=== PATIENT | female | born 1980 | race Caucasian/White ===

== ENCOUNTER 2019-04-14 15:52 | Emergency (ER) | payer MEDICAID, OTHER ==
[~2019-04-14] VITALS: Wt 92.7 kg
[2019-04-14] MEDS ORDERED: LIDOCAINE 1% (MDV) 20 ML INJ SC ONE (17:00)
[2019-04-14] MEDS ORDERED: IBUP800T48 PO (18:13)
[2019-04-14] MEDS ORDERED: SULF1TAB31 PO (18:13)
[2019-04-14] MEDS ORDERED: CEPH500C PO (18:13)
--- NOTE | 2019-04-14 20:01 | ERD ---
ER Documentation Chief Complaint Chief Complaint RIGHT SIDE INNER THIGH ABCESS HPI History of Present Illness: 39-year-old Italian-speaking female who denies past medical history coming in today with complaint of possible abscess to left inner thigh that is been present for 3 days. Patient reporting that drainage started yesterday. Daughter present in room and is Kiswahili speaking. At home pharmacological/nonpharmacological treatment for symptoms: Denies Denies social concerns; Denies recent foreign travel ROS All systems reviewed and are negative except as per history of present illness. Medications Home Meds Active Scripts Sulfamethoxazole/Trimethoprim* (Bactrim Ds* Tablet) 1 Each Tablet, 1 TAB PO BID for abscess skin infection for 7 Days, #14 TAB Prov:JEFF BENSON V PHARMACY STOCK CLERK 04/14/19 Cephalexin* (Cephalexin*) 500 Mg Capsule, 500 MG PO Q6 for abscess infection for 7 Days, #28 CAP Prov:JEFF BENSON V PHARMACY STOCK CLERK 04/14/19 Ibuprofen* (Motrin*) 800 Mg Tab, 800 MG PO Q6H PRN for PAIN AND OR ELEVATED TEMP, #30 TAB Prov:JEFF BENSON V PHARMACY STOCK CLERK 04/14/19 Allergies Allergies: Coded Allergies: No Known Allergy (Verified Allergy, Unknown, 11/15/08) PMhx/Soc Medical and Surgical Hx: pt denies Medical Hx, pt denies Surgical Hx Hx Alcohol Use: No Hx Substance Use: No Hx Tobacco Use: No Smoking Status: Never smoker FmHx Family History: diabetes; No coronary disease Physical Exam Vitals Vital Signs Date Temp Pulse Resp B/P (MAP) Pulse Ox O2 O2 Flow FiO2 Time Delivery Rate 04/14/19 98.6 84 18 118/83 99 16:02 (95) Physical Exam Const: No acute distress Head: Atraumatic Eyes: Normal Conjunctiva ENT: Normal External Ears, Nose and Mouth. Neck: Full range of motion. No meningismus. Resp: Clear to auscultation bilaterally Cardio: Regular rate and rhythm, no murmurs Abd: Soft, non tender, non distended. Normal bowel sounds Skin: No petechiae or rashes; abscess noted to left inner thigh, 4 cm induration, no streaking, no surrounding cellulitis, positive fluctuance, positive purulent drainage Back: No midline or flank tenderness Ext: No cyanosis, or edema Neur: Awake and alert Psych: Normal Mood and Affect Results 24 hrs Current Medications Medications Dose Sig/Pipo Start Time Status Last (Trade) Ordered Route PRN Stop Time Admin Dose Reason Admin Lidocaine 20 ml ONCE ONCE 04/14/19 DC (Xylocaine SC 17:00 1% (Mdv) 20 04/14/19 17:01 ml) Procedures/MDM ED course includes a thorough examination and history. Medications: Lidocaine 1% Imaging: Labs: Low suspicion for life-threatening medical emergency. Low suspicion for infectious emergency that requires hospitalization or immediate surgical intervention. Abscess Incision and Drainage with irrigation by me: Location: Left inner thigh Anesthesia: Local 1% Lidocaine Technique: Irrigated. Disrupted loculations w/ instrumentation Packing: Iodoform Complications: Neurovascularly intact post procedure 48 hour wound check. Scar minimization instructions given. Otherwise healthy patient presenting with constellation of symptoms likely representing skin abscess as characterized by history, physical exam findings. Patient reassessment @1815: Procedure complete. Pt and daughter verbalize understanding of instructions to return to ER or PCP for removal of packing. Patient hemodynamically stable. No respiratory distress, otherwise relatively well appearing and nontoxic. Disposition given. Patient educated on diagnoses, prescriptions, follow-up care, return precautions. Strict return precautions given for worsening condition; questions answered discharge. Disposition for discharge with followup in 2 days with PCP/clinic. Departure Diagnosis: Primary Impression: Abscess Condition: Stable Patient Instructions: Abscess, Incision And Drainage Referrals: [facility] YOU HAVE RECEIVED A MEDICAL SCREENING EXAM AND THE RESULTS INDICATE THAT YOU DO NOT HAVE A CONDITION THAT REQUIRES URGENT TREATMENT IN THE EMERGENCY DEPARTMENT. FURTHER EVALUATION AND TREATMENT OF YOUR CONDITION CAN WAIT UNTIL YOU ARE SEEN IN YOUR DOCTORS OFFICE WITHIN THE NEXT 1-2 DAYS. IT IS YOUR RESPONSIBILITY TO MAKE AN APPOINTMENT FOR FOLOW-UP CARE. IF YOU HAVE A PRIMARY DOCTOR --you should call your primary doctor and schedule an appointment IF YOU DO NOT HAVE A PRIMARY DOCTOR YOU CAN CALL OUR PHYSICIAN REFERRAL HOTLINE AT IF YOU CAN NOT AFFORD TO SEE A PHYSICIAN YOU CAN CHOSE FROM THE FOLLOWING [facility] [address] [facility] [address] [facility]. [facility] [address] [facility] [address] [facility]. [facility] [address] [facility]. [facility] [address] [facility]. [facility] YOU HAVE RECEIVED A MEDICAL SCREENING EXAM AND THE RESULTS INDICATE THAT YOU DO NOT HAVE A CONDITION THAT REQUIRES URGENT TREATMENT IN THE EMERGENCY DEPARTMENT. FURTHER EVALUATION AND TREATMENT OF YOUR CONDITION CAN WAIT UNTIL YOU ARE SEEN IN YOUR DOCTORS OFFICE WITHIN THE NEXT 1-2 DAYS. IT IS YOUR RESPONSIBILITY TO MAKE AN APPOINTMENT FOR FOLOW-UP CARE. IF YOU HAVE A PRIMARY DOCTOR --you should call your primary doctor and schedule and appointment IF YOU DO NOT HAVE A PRIMARY DOCTOR YOU CAN CALL OUR PHYSICIAN REFERRAL HOTLINE AT . IF YOU CAN NOT AFFORD TO SEE A PHYSICIAN YOU CAN CHOSE FROM THE FOLLOWING [facility] INSTITUTIONS: [facility] [address] [place] [address] [facility] [address] [place] [address] [facility] [address] [place] [address] Additional Instructions: Muchas ryan por permitirnos participar en alva cuidado. Alva marco y seguridad es nuestra principal prioridad en [facility]. Es importante leer todas las instrucciones de dejon y la educacin que se proporcionan en alva paquete de dejon. * Regrese al departamento de emergencias o a alva mdico / clnica de atencin primaria en 2 ricks para retirar el empaque / gasa y la herida. * Llame a alva mdico de atencin primaria MAANA para celeste isaura shanel los prximos 2 a 4 ricks y lleve toda la informacin y los medicamentos recetados. Llene las recetas y siga exactamente las instrucciones de la etiqueta. -Cefalexina y Bactrim son antibiticos; tome estos medicamentos todos los ricks aubrey se indica en alva receta. Debe completar todo el curso de tratamiento que figura en alva receta. [place]oche es muy importante porque se necesitan varios ricks para eliminar las bacterias que causan la infeccin. Si los sntomas empeoran y alva proveedor no est disponible, regrese inmediatamente al Departamento de Emergencias ---- Thank you very much for allowing us to participate in your care. Your health and safety is our top priority at [facility]. It is important to read all discharge instructions and education provided in your discharge packet. *Return to emergency department or your primary care doctor/clinic in 2 days for removal of packing/gauze and wound.* Call your primary care doctor TOMORROW for an appointment during the next 2-4 days and bring all the information and medications prescribed. Have prescriptions filled and follow precisely the directions on the label. -Cephalexin and Bactrim are antibiotics; take these medication every day as listed on your prescription. You must complete the entire course of treatment that is listed on your prescription this is very important because it takes a certain number of days to kill the bacteria that is causing the infection. If the symptoms get worse and your provider is unavailable, return to the Emergency Department immediately. JEFF BENSON NP April 14, 2019 20:01
== END 2019-04-14 18:37 | disposition home or self-care (01) ==
LOC: FTE 15:52
DX: L02.416 Cutaneous abscess of left lower limb (principal)
CPT/HCPCS: 10060; Z7502; Z7610

== ENCOUNTER 2019-04-16 10:10 | Emergency (ER) | payer OTHER ==
[~2019-04-16] VITALS: Ht 167.6 cm; Wt 93.0 kg
[~2019-04-16 10:10] MED LIST: CEPH500C PO; IBUP800T48 PO; SULF1TAB31 PO
[2019-04-16 10:23] VITALS: BP 112/71; PULSE 74; RESP 19; Ht 167.6 cm; Wt 93.0 kg
--- NOTE | 2019-04-16 11:17 | ERD ---
ER Documentation Chief Complaint Chief Complaint WOUND CHECK HPI 39-year-old female presents for wound check. She had a incision and drainage of a left upper thigh abscess 2 days ago. She denies any fevers. She is currently taking antibiotics she. She denies any rash or side effects from the antibiotic. No other modifying factors noted. ROS All systems reviewed and are negative except as per history of present illness. Medications Home Meds Active Scripts Sulfamethoxazole/Trimethoprim* (Bactrim Ds* Tablet) 1 Each Tablet, 1 TAB PO BID for abscess skin infection for 7 Days, #14 TAB Prov:JEFF BENSON V STOCK ASSOCIATE 04/14/19 Cephalexin* (Cephalexin*) 500 Mg Capsule, 500 MG PO Q6 for abscess infection for 7 Days, #28 CAP Prov:ZULY BENSONA V STOCK ASSOCIATE 04/14/19 Ibuprofen* (Motrin*) 800 Mg Tab, 800 MG PO Q6H PRN for PAIN AND OR ELEVATED TEMP, #30 TAB Prov:ZULY BENSONA V STOCK ASSOCIATE 04/14/19 Allergies Allergies: Coded Allergies: No Known Allergy (Verified Allergy, Unknown, 11/15/08) PMhx/Soc Medical and Surgical Hx: pt denies Medical Hx History of Surgery: Yes (I and D.) Anesthesia Reaction: No Hx Neurological Disorder: No Hx Respiratory Disorders: No Hx Cardiac Disorders: No Hx Psychiatric Problems: No Hx Miscellaneous Medical Probl: No Hx Alcohol Use: No Hx Substance Use: No Hx Tobacco Use: No Smoking Status: Never smoker FmHx Family History: No coronary disease Physical Exam Vitals Vital Signs Date Temp Pulse Resp B/P (MAP) Pulse Ox O2 O2 Flow FiO2 Time Delivery Rate 04/16/19 97.7 74 19 112/71 100 10:23 (85) Physical Exam Const: No acute distress Resp: Clear to auscultation bilaterally Cardio: Regular rate and rhythm, no murmurs Skin: Left upper thigh incision and drainage area with packing, removed, clean dry and intact Ext: No cyanosis, or edema Neur: Awake and alert Psych: Normal Mood and Affect Procedures/MDM Medical Decision Making: Presents for wound check of incision and drainage done a left upper thigh abscess 2 days ago. Patient appeared well on physical exam. Incision and drainage site was clean dry and intact. The packing was removed with no pus seen. Patient advised regarding wound care. Patient advised to follow up with PCP in 1-2 days. Patient advised to return to ED for new or worsening symptoms. Patient stable on discharge from the ED. Disclaimer: Inadvertent spelling and grammatical errors are likely due to EHR/dictation software use and do not reflect on the overall quality of patient care. Also, please note that the electronic time recorded on this note does not necessarily reflect the actual time of the patient encounter. Departure Diagnosis: Primary Impression: Encounter for wound re-check Condition: Fair Patient Instructions: Wound Care Referrals: [facility] YOU HAVE RECEIVED A MEDICAL SCREENING EXAM AND THE RESULTS INDICATE THAT YOU DO NOT HAVE A CONDITION THAT REQUIRES URGENT TREATMENT IN THE EMERGENCY DEPARTMENT. FURTHER EVALUATION AND TREATMENT OF YOUR CONDITION CAN WAIT UNTIL YOU ARE SEEN IN YOUR DOCTORS OFFICE WITHIN THE NEXT 1-2 DAYS. IT IS YOUR RESPONSIBILITY TO MAKE AN APPOINTMENT FOR FOLOW-UP CARE. IF YOU HAVE A PRIMARY DOCTOR --you should call your primary doctor and schedule an appointment IF YOU DO NOT HAVE A PRIMARY DOCTOR YOU CAN CALL OUR PHYSICIAN REFERRAL HOTLINE AT IF YOU CAN NOT AFFORD TO SEE A PHYSICIAN YOU CAN CHOSE FROM THE FOLLOWING [facility] [address] [facility]. [facility] [address] [facility] [address] [facility] [address] [facility]. [facility] [address] [facility]. [facility]. [address] Additional Instructions: Llame al doctor MAANA y bryan celeste ALYCIA PARA DENTRO DE 1-2 FRANCISCO.Dgale a la secretaria que nosotros le instruimos hacer esta alycia.Avise o llame si roque condicin se empeora antes de la alycia. Regresa aqui si peor o no mejor. JOHN CRESPO DO April 16, 2019 11:17
== END 2019-04-16 11:26 | disposition home or self-care (01) ==
LOC: FTE 10:10
DX: Z48.01 Encounter for change or removal of surgical wound dressing (principal)
CPT/HCPCS: 99281